=== PATIENT | male | born 1955 | race Two or more races ===

== ENCOUNTER 2025-02-03 21:51 | Inpatient (IN) | payer OTHER ==
[2025-02-03] MEDS ORDERED: ACETAMINOPHEN 325 MG TABLET (FP) PO PRN (22:33)
[2025-02-03] MEDS ORDERED: IBUPROFEN 400 MG TABLET (FP) PO PRN (22:33)
[2025-02-03] MEDS ORDERED: MAGNESIUM HYDROX 2400MG/30ML ORAL SUSPENSION 30 ML CUP PO PRN (22:34)
[2025-02-03] MEDS ORDERED: LOPERAMIDE HCL 2 MG CAPSULE PO PRN (22:34)
[2025-02-03] MEDS ORDERED: hydrOXYzine PAMOATE 25 MG CAPSULE (FP) PO PRN (22:34)
[2025-02-03] MEDS ORDERED: MAG HYDROX/AL HYDROX/SIMETH 30 ML UNIT-DOSE CUP PO PRN (22:34)
[2025-02-03] MEDS ORDERED: BENZOCAINE/MENTHOL (CHLORASEPTIC ) LOZENGE MM PRN (22:39)
[2025-02-03] MEDS ORDERED: BENZONATATE 200 MG CAPSULE PO PRN (22:39)
[2025-02-03] MEDS ORDERED: IBUPROFEN 600 MG TABLET (FP) PO PRN (22:39)
[2025-02-03] MEDS ORDERED: guaiFENesin 600 MG TABLET.ER (FP) PO PRN (22:39)
[2025-02-03] MEDS ORDERED: METHOCARBAMOL 500 MG TABLET PO PRN (22:40)
[2025-02-03] MEDS ORDERED: POLYETHYLENE GLYCOL (HEALTHYLAX) 3350 17 GM PACKET PO PRN (22:40)
[2025-02-03] MEDS ORDERED: NALOXONE (NARCAN) HCL 4 MG/0.1 ML SPRAY NS PRN (22:40)
[2025-02-03] MEDS ORDERED: NALOXONE HCL 0.4 MG/ML VIAL IVPUSH PRN (22:40)
[2025-02-03] MEDS: MELATONIN 5 MG TABLETS PO SCH (23:10)
[2025-02-04] MEDS ORDERED: ONDANSETRON *ODT* 4 MG TABLET SL PRN (08:11)
[2025-02-04] MEDS: PRENATAL VITAMINS W/ FOLIC ACID TABLET (FP) PO SCH (10:52)
[2025-02-04 13:24] LABS: MCHC 30.8 g/dl (32.3-36.5); MEAN CELL VOLUME 88.8 fl (79.0-92.2); MEAN PLT VOLUME 10.0 fl (9.4-12.4); RDW 14.8 % (12.2-16.4)
[2025-02-04 13:54] LABS: GLUCOSE,RANDOM 92 mg/dL (74-106); TOT PROT 5.8 g/dl (6.4-8.2)
[2025-02-04 13:55] LABS: CO2 24 mmol/L (21-32)
[2025-02-04 13:57] LABS: ALK PHOS 160 U/L (40-150)
[2025-02-04 13:59] LABS: CREATININE 0.89 mg/dL (0.55-1.3); SGOT/AST 18 U/L (5-34); SGPT/ALT 10 U/L (0-55)
[2025-02-04] MEDS ORDERED: NICOTINE POLACRILEX 4 MG LOZENGE BC PRN (14:42)
[2025-02-04] MEDS ORDERED: BISMUTH SUBSALICYLATE 524 MG/30 ML PO PRN (14:43)
[2025-02-04] MEDS ORDERED: DICYCLOMINE HCL 10 MG CAPSULE PO PRN (14:43)
[2025-02-04] MEDS ORDERED: BUPRENORPHINE HCL 150 MCG, BUPRENORPHINE HCL 75 MCG BC PRN (14:45)
[2025-02-04] MEDS: NICOTINE 14 MG/24 HOURS TOPICAL PATCH TD SCH (15:56)
[2025-02-04] MEDS: BUPRENORPHINE HCL 150 MCG, BUPRENORPHINE HCL 75 MCG BC ONE (15:56)
[2025-02-04] MEDS: THIAMINE 100 MG TABLET PO SCH (22:01)
[2025-02-04] MEDS: BACITRACIN 0.9 GM PACKET TP SCH (22:01)
[2025-02-05] MEDS ORDERED: BUPRENORPHINE HCL 150 MCG, BUPRENORPHINE HCL 75 MCG BC PRN
[2025-02-05] MEDS: BUPRENORPHINE HCL 150 MCG, BUPRENORPHINE HCL 75 MCG BC SCH (06:14)
[2025-02-06] MEDS: BUPRENORPHINE HCL 450 MCG FILM BC SCH (06:27)
[2025-02-07] MEDS: BUPRENORPHINE/NALOXONE 4 MG/1 MG FILM PACKET SL SCH (07:00)
[2025-02-08] MEDS: BUPRENORPHINE/NALOXONE 8 MG/2 MG FILM PACKET SL SCH (06:05)
[2025-02-11] MEDS: CLOTRIMAZOLE 1% CREAM TP SCH (11:49)
[2025-02-21 06:16] VITALS: RESP 16
[2025-02-24 07:30] VITALS: BP 126/60; PULSE 71; TEMP 97.3
== END 2025-02-24 09:54 | disposition home or self-care (01) | DRG 895 ==
LOC: YASAS 21:51 → Y3W 21:52
PROVIDERS: ADMIT Psychiatry & Neurology Pain Medicine; ATTEND Psychiatry & Neurology Pain Medicine
PROC: HZ42ZZZ Group Counseling for Substance Abuse Treatment, Cognitive-Behavioral (ICD-10-PCS; principal; 2025-02-03)
DX: F11.20 Opioid dependence, uncomplicated (principal); L97.919 Non-pressure chronic ulcer of unspecified part of right lower leg with unspecified severity; F17.210 Nicotine dependence, cigarettes, uncomplicated; F32.A Depression, unspecified; J45.909 Unspecified asthma, uncomplicated; M54.50 Low back pain, unspecified; G89.29 Other chronic pain; R60.0 Localized edema
CPT/HCPCS: 36415; 80053; 85027; 86780